=== PATIENT | female | born 1955 | race Caucasian/White ===

== ENCOUNTER → 2020-02-24 14:29 | Outpatient (CLI) | payer OTHER, SELFPAY ==
--- NOTE | 2020-02-24 14:32 | CT_ITS ---
STUDY: CT RIGHT LOWER EXTREMITY REASON FOR EXAM: Right knee osteoarthritis, surgical planning. TECHNIQUE: Transaxial CT imaging of the lower extremity was performed. Coronal and sagittal images were reformatted. Individualized dose optimization techniques were used for this CT. COMPARISON: None. FINDINGS: Knee: There are marginal osteophytes, subchondral eburnation and joint space loss of the medial femorotibial compartment (coronal reconstructions 27-31). There are marginal osteophytes of the lateral femorotibial compartment without joint space narrowing. There are marginal osteophytes of the patellofemoral articulation and a surface osteophyte of the medial ridge of the patella without substantial joint space narrowing of the patellofemoral articulation. Normal proximal tibiofibular articulation. There is no joint effusion. The quadriceps tendon is grossly normal. The patellar tendon is grossly normal. Normal Hoffa''s fat pad. There is an intra-articular body in the distal popliteus tendon sheath (sagittal reconstructions 27, 28). There is a small calcification in the medial collateral ligament (coronal reconstruction 30) from remote injury. There is a small enthesophyte at the superior pole of the patella. Hip: There is mild joint space narrowing of the superior lateral right hip joint (coronal reconstruction 78). Ankle: Normal tibiotalar, posterior subtalar and talonavicular articulations. There are small ossifications in the distal Achilles tendon consistent with chronic Achilles tendinitis (sagittal reconstructions 31, 32). CT/Extremity Lower without Contra IMPRESSION: Right knee osteoarthritis. Electronically Signed: Nazario Hester MD at 15:15 EST Tel , Service support ,
== END ==
PROVIDERS: PCP Physician Assistant; Referring Provider Specialist; Visit Provider Specialist
DX: M21.161 Varus deformity, not elsewhere classified, right knee (principal)
CPT/HCPCS: 73700

== ENCOUNTER 2020-03-11 05:24 | Day surgery (SDC) | payer OTHER, SELFPAY ==
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
--- NOTE | 2020-02-24 15:15 | EKG12_ITS ---
Test Reason : PRE-OP Blood Pressure : / mmHG Vent. Rate : 069 BPM Atrial Rate : 069 BPM P-R Int : 180 ms QRS Dur : 146 ms QT Int : 440 ms P-R-T Axes : 034 -19 002 degrees QTc Int : 471 ms Normal sinus rhythm Right bundle branch block Abnormal ECG Confirmed by MEHDI TORRES, FRANCISCO JAVIER ([id number]), book or script editor AVEL VENTURA ([id number]) on 02/25/2020 8:40:00 AM Referred By: Baljit Davidson Confirmed By:FRANCISCO JAVIER HARDING MD
[2020-02-24 15:41] LABS: Absolute Lymphocyte Count 2.32 X10^3/uL (0.83-4.51); Absolute Neutrophil Count 3.8 X10^3/uL (2.0-7.7); Basophil# 0.04 X10^3/uL; Basophil% 0.6 % (0-1); Eosinophil# 0.39 X10^3/uL; Eosinophils% 5.5 % (0-5); Hemoglobin 12.4 g/dL (12.0-15.0); Lymphocyte # 2.32 X10^3/ul (4.0); Mean Corp Hgb Conc 31.8 g/dL (32-36); Mean Corpuscular Volume 91.3 fL (81-99); Mean Platelet Vol. 11.1 fl (6.2-12.0); Monocyte# 0.48 X10^3/uL; Monocyte% 6.8 % (0-10); NRBC Flagged by Analyzer 0 % (0-5); Neutrophil # 3.77 X10^3/uL (2.7-7.7); Neutrophil % 53.7 % (47-70); Platelet Count 264 K/mm3 (150-450); RBC Distribution Width CV 12.9 % (11.6-14.6); Red Blood Count 4.27 M/mm3 (4.2-5.4)
[2020-02-24 16:02] LABS: Hemoglobin A1c 5.6 % (3.8-5.6)
[2020-02-24 16:12] LABS: Anion Gap 5 (5-15); BUN 12 mg/dL (7-18); BUN/Creat Ratio 15.6 RATIO (10-20); Calcium,Total 9.1 mg/dL (8.5-10.1); Chloride 107 mmol/L (98-107); Creatinine, Serum 0.77 mg/dL (0.55-1.02); EST Glomerular Filtration Rate 81 mL/min (>60); Est Glom Filt Rate - Afr Amer 98 mL/min (>60); Glucose 94 mg/dL (74-106); Sodium Level 139 mmol/L (136-145)
[2020-02-26 14:25] LABS: Magnesium 2.5 mg/dL (1.6-2.6)
[2020-02-26 15:00] LABS: Thyroid Stim Hormone (TSH) 1.95 uIU/mL (0.358-3.74)
[2020-03-11] VITALS (13 sets, daily range): BP systolic 122–152; BP diastolic 63–90; PULSE 60–96; RESP 14–18; TEMP 36.3–37.7; O2SAT 93–100; BMI 37.5
[2020-03-11] MEDS: Gabapentin 600 MG Tablet PO (06:36)
[2020-03-11] MEDS: Acetaminophen 500 MG Tablet 1000 MG PO ×2 (06:37→14:07)
[2020-03-11] MEDS: Lactated Ringers 1,000 ML 100 ML IV ×2 (06:38→07:15)
[2020-03-11 06:50] LABS: Bedside Glucose 159 mg/dL (70-110)
[2020-03-11] MEDS: Cefazolin 2 GM in 0.9% Normal Saline 100 ML IV (07:30)
[2020-03-11] MEDS: dexAMETHasone 10 MG/ML Vial IV (07:40)
[2020-03-11] MEDS: Lactated Ringers 1,000 ML 999 ML IV (08:30)
--- NOTE | 2020-03-11 08:49 | PCM.OPRPT ---
Report of Operation Date of Procedure: 03/11/20 Pre-Operative Diagnosis: Right knee primary osteoarthritis Post-Operative Diagnosis: Right knee primary osteoarthritis Surgery/Procedure Performed:: Right minimally invasive robotic assisted total knee replacement Description of Surgical Findings:: Stable knee with good patella tracking network director: Marcie Castellanos Type of Anesthesia:: Spinal Anesthesiologist: Devin Mayes Special Medications: 2 g Ancef, 1 g TXA at incision, 1 g TXA closure, 10 mg Decadron, joint cocktail (5 mg Duramorph, 30 mL of 0.5% Ropivicaine, 1000 units of epinephrine, 30 mg of Toradol) Specimen's removed: Bony cuts Estimated Blood Loss (mL): 75 Fluids Replaced: 1200 mL crystalloid Description of Procedure: Implants used: 1. [employer] size 3 triathlon cruciate retaining distal femoral press-fit component 2. [employer] size 4 press-fit tritanium tibial baseplate 3. Jorge X3 10 mm CS polyethylene 4. [employer] X3 29 mm asymmetric patella Brief history operative indications: 64-year-old F with history of right knee osteoarthritis with radiographic findings with loss of joint space, osteophyte formation and subchondral sclerosis. Failed conservative measures as mentioned in the H&P. Discussion of total knee arthroplasty as well as risk and benefits were discussed the patient including but not limited to blood loss, DVTs, PEs, neurovascular damage, general risk of anesthesia including loss of life, and stiffness or instability were discussed with patient. Patient demonstrated understanding and was able to sign informed consent. Procedure: On the date of procedure patient's right lower extremity was marked in the preoperative area. The patient was then taken back to the operating room where the patient was placed on the table in the supine position. All bony prominences were identified a well-padded. Anesthesia assumed control of the C-spine and airway and remained controlled throughout the remainder of the procedure. A tourniquet was placed on the right upper thigh and the leg was prepped in a sterile fashion. The surgeon then scrubbed at this time .Upon reentering the room right lower extremity was draped in a standard orthopedic fashion. A timeout was then called and everyone agreed upon the side, the site, the procedure to be performed, patient's identity and antibiotics given. Esmarch bandage was used to exsanguinate the extremity and the tourniquet was placed up to 250 mmHg with the knee in flexion. A midline skin incision was made and sharp dissection was taken down through skin subcutaneous tissue and fat. The standard medial parapatellar incision was made and the patella was subluxed laterally. An Appropriate deep MCL release was done and the fat pad was resected. Our attention was then directed to the patella. The patella was everted and a flat resection was made. The knee was then flexed up in 2 femoral pins were placed inside the incision and 2 tibial pins were placed outside the incision in the medial tibia bicortically. Once this was completed the 2 checkpoints in the femur and tibia were placed. Knee was then flexed up and the bony landmarks were registered. Once this was completed knee was taken through range of motion and manually stressed allowing us to a plan for an appropriate tibial cut. The robotic arm was brought into the field sterilely and checkpoint and saw were registered. Based on the patient's deformity the tibial cut was made neutral. At this time the tensioner was then placed in the joint and ligament tension was checked at 90 degrees and full extension. Based on the patient's ligamentous tension appropriate adjustments were made to the operative plan and ligament releases were done. Once we were happy with our operative plan with balanced flexion and extension gaps our attention was directed to the femur. The robot was brought into the field sterilely and registered. Posterior condylar cuts, anterior chamfer cuts and anterior cuts were appropriately made for a size 3 femur. When these were completed the saws were switched out in the distal femoral and posterior chamfer cuts were made. Protecting the soft tissue throughout this time. A size 4 tibial base plate was selected. the knee was flexed to 90 degrees and the soft tissues and posterior osteophytes were removed from the joint. 40 cc of the periarticular injection was injected into the posterior medial corner of the joint. The appropriate trials were then placed on the femur and tibia. A trial polyethylene was trialed to ensure proper balancing and stability of the knee. The appropriate tibial internal rotation was then marked with a bovie. Our attention was then directed to the patella. The lug holes were drilled and the patella trial was placed. Patellar tracking was checked and deemed appropriate. Once we were happy lug holes were drilled for the femur and trial components were removed. the tibia was subluxed and pinned into place and the keel was punched and drilled appropriately. Final components were verified and opened, and cement was mixed in a vacuum. [employer] Simplex cement was used. The wound was copiously irrigated with normal saline. When the cement was ready the components were impacted into place starting with the tibia, femur and finally cementing the patella. The trial poly component was placed and the knee was placed in full extension. All excess cement was removed in the process. Once the cement had cured the tracking, alignment and balance were verified and a size 10 mm CS 6 polyethylene component was placed. Once the final components were placed an Irrisept lavage was performed and the wound was copiously irrigated with normal saline solution and the periarticular injection was given. The wound was closed in a layer chilel fashion using #1 vicryl interrupted sutures for the arthrotomy, 2-0 interrupted Vicryl suture for the subcuticular layer and imtiaz for final skin closure. A sterile compressive dressing was then placed. The patient was then awakened from anesthesia, transferred to the [facility] and transferred to the PACU for recovery. Post op plan DVT ppx: Xarelto 10 mg daily due to previous venous thrombosis, thigh high compression stockings Follow up: in office in 2 weeks for wound check PT: to start POD #0 at hospital, outpatient PT should be arranged. - Complications No intraoperative complications - Admit VTE Documentation VTE Present on Admission: No VTE Mechan Device Prophylaxis: SCD's, Thigh High BERT Hose VTE Pharm Prophylaxis ordered?: Yes
[2020-03-11] MEDS: Lactated Ringers 1,000 ML 125 ML IV (10:41)
--- NOTE | 2020-03-11 13:13 | SUR.PHASEII ---
THIS NURSE ATTEMPTED TO GET PATIENT UP TO THE BSC. SHE BECAME NAUSEOUS AND DIZZY SO WE GOT BACK INTO THE BED. SHE WAS INCONTINENT OF A LARGE AMOUNT OF URINE. COMPLETE BED CHANGE DONE. PATIENT RESTING COMFORTABLE BACK IN BED.
[2020-03-11] MEDS: Cefazolin 1 GM/50 ML BAG IV (14:07)
== END 2020-03-11 17:07 | disposition home or self-care (01) ==
LOC: SDC 05:26 → AC 05:27
PROVIDERS: Anesthesiology; PCP Physician Assistant; Referring Provider Specialist; Visit Provider Specialist
PROC: 0SRC0JZ Replacement of Right Knee Joint with Synthetic Substitute, Open Approach (ICD-10-PCS; CPT 27447; principal; 2020-03-11 07:00)
DX: M17.11 Unilateral primary osteoarthritis, right knee (principal); Z20.828 Contact with and (suspected) exposure to other viral communicable diseases; M81.0 Age-related osteoporosis without current pathological fracture; G47.30 Sleep apnea, unspecified; I10 Essential (primary) hypertension; E66.9 Obesity, unspecified; Z98.84 Bariatric surgery status; Z79.899 Other long term (current) drug therapy; Z79.01 Long term (current) use of anticoagulants; Z86.718 Personal history of other venous thrombosis and embolism; Z68.36 Body mass index [BMI] 36.0-36.9, adult; E07.9 Disorder of thyroid, unspecified
CPT/HCPCS: 01400; 27447; 64447; S2900; 36415; 80048; 82962; 83036; 83735; 84443; 85025; 87081; 87426; 93005; 97162; C1776; C9803; J7120; J2405

== ENCOUNTER → 2021-09-24 | Outpatient (CLI) | payer OTHER, SELFPAY ==
--- NOTE | 2021-09-24 15:11 | NEURO ---
NCS and/or EMG Patient Report Ordering Doctor: Tati Mcclelland DATE OF SERVICE: 09/24/21 Indication: Numbness in both feet, primarily focused around the lesser toes. Evaluate for peripheral neuropathy. Findings: Nerve conduction studies were performed in the right and left lower extremity. The right peroneal motor study recording the extensor digitorum brevis showed a slightly reduced amplitude, normal distal latency and normal conduction velocity. No conduction block or focal slowing was present across the fibular neck. The right tibial motor study recording the abductor hallucis brevis showed a normal amplitude, normal distal latency and normal conduction velocity. The right sural sensory response was impersistent, but occasionally showed a borderline amplitude and conduction velocity. The right superficial peroneal sensory response was absent. The right medial plantar sensory response was absent. The right lateral plantar sensory response was absent. The left peroneal motor study recording the extensor digitorum brevis showed a normal amplitude, normal distal latency and normal conduction velocity. No conduction block or focal slowing was present across the fibular neck. The left tibial motor study recording the abductor hallucis brevis showed a normal amplitude, normal distal latency and normal conduction velocity. The left sural sensory response was absent. The left superficial peroneal sensory response was intermittently present, but difficult to obtain accurately. The left medial plantar sensory response was absent. The left lateral plantar sensory response was absent. Needle EMG of the left lower extremity muscles was performed. No denervation was present in any muscle. The extensor hallucis brevis revealed motor units which were large amplitude, long duration and with reduced recruitment. All other motor unit morphology, activation and recruitment patterns were normal. Needle EMG of the right lower extremity was omitted given the symmetry of the patient's symptoms and paucity of findings on the left. Impression: This is an abnormal, but technically challenging study. Multiple sensory responses in the bilateral lower extremities were absent and others were intermittently recorded, but of poor quality. Chronic reinnervation changes were only present in the most distally sampled muscle. In totality, there is electrophysiologic evidence compatible with the diagnosis of a generalized, sensory predominant, peripheral neuropathy. Jroge Mercado D.O. Multi Select Codes Neurology Neurology Interp Codes: 22058-01 Musc test done w/n test comp (interp) and 15225-73 Nr cndj test 11-12 studies (interp)
== END | disposition home or self-care (01) ==
LOC: PSN 13:11
PROVIDERS: PCP Physician Assistant; Referring Provider Physician Assistant; Visit Provider Physician Assistant
DX: R20.0 Anesthesia of skin (principal)
CPT/HCPCS: 95886; 95912

== ENCOUNTER → 2022-09-06 | Outpatient (CLI) | payer MEDICARE, OTHER, SELFPAY | END | disposition home or self-care (01) | LOC: SL 19:59 | PROVIDERS: PCP Physician Assistant; Referring Provider Physician Assistant; Visit Provider Physician Assistant | DX: G47.33 Obstructive sleep apnea (adult) (pediatric) (principal) | CPT/HCPCS: 95811 ==

== ENCOUNTER 2023-11-15 03:22 | Emergency (ER) | payer MEDICARE, OTHER, SELFPAY ==
[2023-11-15 03:23] VITALS: BP 162/89; PULSE 67; RESP 16; TEMP 36.9; O2SAT 97; BMI 40.0
--- NOTE | 2023-11-15 03:35 | EDS_ITS ---
HPI History of Present Illness Chief Complaint: Eye Problem Informant: patient Onset/Context/Timing Location: Right Eye Onset: Today Context: Gradual Onset Timing: Continuous Current Severity: Mild Maximum Severity: Mild Associated Symptoms Associated Symptoms - Eyes: Redness History of injury: Uncertain Visual correction: - (Prior cataract surgery repair both eyes. Does not wear glasses or contacts now.) Narrative Narrative: 68-year-old female prior bilateral cataract surgery and lens implants about [address] Barksdale of the [facility]. Patient states she has been doing well. Since she had mild discomfort in her eye they may have rubbed it and now has redness on the conjunctiva. She denies being on any blood thinners. She has had no other trauma. She denies any visual change. No discharge. Prior similar symptoms: No Recent Illness/Hospitalization: No [facility] Medical History Hypothyroid HTN (hypertension) Diabetes mellitus Home Medications ?Medication ?Instructions ?Recorded ?Last Taken ?Type acetaminophen 500 mg tablet 1,500 mg PO BID 02/26/20 Unknown History enalapril maleate 5 mg tablet 5 mg PO DAILY 02/26/20 Unknown History levothyroxine 25 mcg tablet 25 mcg PO DAILY 02/26/20 Unknown History turmeric root extract 500 mg 500 mg PO DAILY 02/26/20 Unknown History capsule Allergy/AdvReac Type Severity Reaction Status Date / Time No Known Allergies Allergy Verified 11/15/23 03:27 Social History Smoking Status: Never smoker ROS ROS ED ROS Narrative Denies recent illness. Constitutional Constitutional ED: Denies chills or fever(s) Eyes Eyes: Denies blurry vision, change in vision or diplopia ENT ENT ED: Denies ear pain Cardiovascular Cardiovascular: Denies chest pain Respiratory/Chest Respiratory/Chest: Denies cough Gastrointestinal Gastrointestinal: Denies abdominal pain Genitourinary Genitourinary ED: Denies dysuria Musculoskeletal Musculoskeletal: Denies arthralgias Integumentary Denies abscess Neurologic Neurologic: Denies headache(s) Psychiatric Psychiatric: Denies anxiety Endocrine Endocrinology: Denies polydipsia Hematologic/Lymphatic Hematologic/Lymphatic: Denies easy bleeding, easy bruising or lymphadenopathy Allergic/Immunologic Allergic/Immunologic ED: Denies mouth swelling, tongue swelling or urticaria EXAM Physical Exam Narrative Exam Narrative: Well-appearing female vital signs stable afebrile. H EENT exam pupils round reactive light. Bilateral implants. Right eye has a subconjunctival hemorrhage almost 100% of the conjunctiva. No swelling or bruising of the lid. No discharge. No preauricular lymphadenopathy. No orbital or periorbital cellulitis or swelling. Extraocular motions are intact. Neck nontender. Lungs are clear. Heart regular rhythm no murmur. Otherwise exam unremarkable. Const Vital Signs: 11/15/23 03:23 Temperature 98.5 F Temperature Source Temporal Pulse Rate 67 Respiratory Rate 16 Blood Pressure 162/89 H Blood Pressure Mean 113 Pulse Ox 97 Oxygen Delivery Method Room Air Positive well nourished and well developed; Negative for cachectic, contractures or unkempt General Appearance ED: well developed and NAD; Negative for unkempt, cachectic or contractures Nutritional Appearance: Negative for cachectic HEENT atraumatic; Negative for trauma or tenderness Nose: external nose normal and nares normal Neck no lymphadenopathy, supple and no JVD General: Negative for tenderness Resp normal respiratory effort, no retractions, no use of accessory muscles and clear to auscultation bilaterally Cardio regular rate, regular rhythm, S1 normal heart sound, S2 normal heart sound and no murmurs GI non-tender, non-distended and no masses Inspection: Negative for other Palpation: soft Back/Spine no CVA tenderness Extremity normal to inspection Neuro oriented x3, CN's II-XII intact bilaterally and moves all extremities Sensorium / Orientation: alert, oriented to person, oriented to place and oriented to time; Negative for orientation impaired Motor Exam: strength 5/5 throughout Psych Appearance: Negative for unkempt Attitude: No agitated Mood & Affect: Negative for depressed, anxious or tearful Skin no wounds Lesions: no lesions Rashes: no rashes MDM MDM MDM Narrative Medical decision making narrative: 68-year-old with prior bilateral cataract surgery with lens implants. Tonight has a right subconjunctival hemorrhage. I will do slit-lamp examination of her right eye to rule out any type of corneal abrasion because she thinks she may have rubbed her eye. I performed a slit-lamp examination on the patient's right eye. Tetracaine was instilled and fluorescein. There is obvious subconjunctival hemorrhage which involves almost the entire white of her eye. I see no signs of corneal naida zoila. Or any bacterial infection. Visual acuity is being obtained. She will be discharged home. 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 She was instructed that this may take weeks to resolve. Visual acuity in the right eye was 20/20 in the left eye was 20/10. History & Record Review Discussion w/independent historian: Patient Discharge Plan Triage Chief Complaint: Eye Problem ED Provider: Raghu Ravi Dx/Rx/DC Orders Clinical Impression: Subconjunctival hemorrhage, History of cataract surgery, History of intraocular lens implant, History of diabetes mellitus Instructions: ED Subconjunctival Hemorrhage Prescriptions: No Action enalapril maleate 5 MG tablet 5 mg PO DAILY acetaminophen 500 MG tablet 1,500 mg PO BID levothyroxine 25 MCG tablet 25 mcg PO DAILY turmeric root extract 500 MG capsule 500 mg PO DAILY Primary Care Provider: Tati Mcclelland Referrals: Lane Barksdale MD [Med Staff - Active Staff] - As Needed Tati Mcclelland PA [Primary Care Provider] - Activity Restrictions/Additional Instructions: You have what is called a subconjunctival hemorrhage of your right eye. Basically a small blood vessel ruptured and bled into the white of your eye. This will eventually resolve. It may take several weeks. Unless you are having additional problems or develop vision change this should do fine. Follow-up with your eye doctor as needed. Print Language: Persian Disposition Disposition: Home, Self Care
[2023-11-15] MEDS: Tetracaine 0.5% Ophthalmic Bottle 1 DRP RIGHT EYE (03:48)
[2023-11-15] MEDS: Fluorescein 1 MG STRIP 1 STRIP RIGHT EYE (03:48)
[2023-11-15 04:29] VITALS: BP 151/87; PULSE 56; RESP 18; TEMP 36.7; O2SAT 99
== END 2023-11-15 04:55 | disposition home or self-care (01) ==
LOC: ED 04:33
PROVIDERS: Emergency Provider Emergency Medicine; PCP Physician Assistant; Visit Provider Emergency Medicine
DX: H11.31 Conjunctival hemorrhage, right eye (principal); E11.9 Type 2 diabetes mellitus without complications
CPT/HCPCS: 99283